=== PATIENT | male | born 1990 | race Caucasian/White ===

== ENCOUNTER 2017-10-29 00:56 | Emergency (ER) | payer OTHER ==
[~2017-10-29] VITALS: Ht 177.8 cm; Wt 72.6 kg
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
[2017-10-29] MEDS ORDERED: PERCOCET 5-3251 EACH PO (02:49)
[2017-10-29] MEDS ORDERED: IBUPROFEN600 M1 PO (02:49)
[2017-10-29 06:19] VITALS: BP 129/87
== END 2017-10-29 07:47 ==
LOC: ERH 00:56
DX: T25.022A Burn of unspecified degree of left foot, initial encounter (principal); T25.021A Burn of unspecified degree of right foot, initial encounter; X08.8XXA Exposure to other specified smoke, fire and flames, initial encounter; Y93.89 Activity, other specified; Y92.9 Unspecified place or not applicable
CPT/HCPCS: 96361; 96374